=== PATIENT | male | born 1945 | race Caucasian/White ===

== ENCOUNTER 2022-04-15 14:01 | Observation (INO) ==
[2022-04-15] MEDS ORDERED: *HR* HYDROcodone/Acet 5/325 mg TABLET PO ONE (14:07)
[2022-04-15] MEDS ORDERED: Colchicine 0.6 MG TABLET PO ONE ×2 (14:07→20:00)
[2022-04-15 15:07] LABS: Basophils % 0.2 %; Eosinophils % 0.2 %; Hematocrit 34.9 % (37.5-50.1); Hemoglobin 11.4 g/dL (12.9-16.9); Immature Granulocytes % 0.4 % (0-4); Lymphocytes # 0.7 K/mcL (0.6-4.6); Lymphocytes % 4.4 %; Mean Corpuscular HGB Conc 32.7 g/dL (31.6-35.5); Mean Corpuscular Hemoglobin 28.6 pg (28.0-33.3); Mean Corpuscular Volume 87.5 fL (83.0-100.0); Mean Platelet Volume 9.5 fL (9.4-12.4); Monocytes % 12.3 %; Neutrophils # 13.6 K/mcL (1.6-8.9); Platelet Count 222 K/mcL (140-400); Red Blood Count 3.99 M/mcL (4.19-5.50); Red Cell Distribution Width 13.8 % (11.5-14.5); Segmented Neutrophils % 82.5 %; White Blood Count 16.5 K/mcL (4.3-11.1)
[2022-04-15 15:22] LABS: BUN/Creatinine Ratio 16 (6-26); Blood Urea Nitrogen 22 mg/dL (8-23); Calcium 8.5 mg/dL (8.6-10.3); Carbon Dioxide 27 mEq/L (23-29); Chloride 92 mEq/L (98-107); Glucose 238 mg/dL (70-105); Osmolality,Calculated 277 (280-300); Potassium 4.5 mEq/L (3.5-5.1); Sodium 128 mEq/L (136-145); Uric Acid 6.6 mg/dL (2.3-7.6)
[2022-04-15 15:26] LABS: Troponin I < 0.03 ng/mL (< 0.04)
[2022-04-15] MEDS ORDERED: 0.9 % Sodium Chloride 1,000 ML IVC SCH (15:45)
[2022-04-15] MEDS ORDERED: Naloxone 0.4 MG/ML INJ IVP PRN (17:32)
[2022-04-15] MEDS ORDERED: Acetaminophen 325 MG TABLET PO PRN (17:32)
[2022-04-15] MEDS ORDERED: D5% in Water 1,000 ML IVC PRN (17:41)
[2022-04-15] MEDS ORDERED: Dextrose Gel 15 GM/37.5 ML TUBE PO PRN ×2 (17:41)
[2022-04-15] MEDS ORDERED: *HR* Dextrose 50 % in Water (Syg) 50 ML SYRINGE IVP PRN (17:41)
[2022-04-15] MEDS ORDERED: Colchicine 0.6 MG TABLET PO STA (17:49)
[2022-04-15] MEDS: Furosemide 20 MG TABLET PO SCH (18:35)
[2022-04-15] MEDS ORDERED: Bacitracin/PolymyxinB OPTH Oin 3.5 APPL/3.5 GM TUBE RIGHT EYE SCH (21:00)
[2022-04-15] MEDS ORDERED: Erythromycin OPTH Oint BOTH EYES ONE (21:04)
[2022-04-15] MEDS: Insulin LISPRO 300 UNITS/3 ML VIAL SUBQ SCH (21:38)
[2022-04-16 07:32] LABS: Basophils % 0.3 %; Eosinophils # 0.4 K/mcL (0.0-0.6); Eosinophils % 3.1 %; Hematocrit 33.2 % (37.5-50.1); Hemoglobin 10.7 g/dL (12.9-16.9); Immature Granulocytes % 0.6 % (0-4); Lymphocytes # 1.3 K/mcL (0.6-4.6); Lymphocytes % 10.9 %; Mean Corpuscular HGB Conc 32.2 g/dL (31.6-35.5); Mean Corpuscular Hemoglobin 28.4 pg (28.0-33.3); Mean Corpuscular Volume 88.1 fL (83.0-100.0); Mean Platelet Volume 9.8 fL (9.4-12.4); Monocytes # 1.3 K/mcL (0.0-1.3); Neutrophils # 8.9 K/mcL (1.6-8.9); Platelet Count 245 K/mcL (140-400); Red Blood Count 3.77 M/mcL (4.19-5.50); Segmented Neutrophils % 74.1 %
[2022-04-16 08:18] LABS: Calcium 8.5 mg/dL (8.6-10.3); Potassium 4.2 mEq/L (3.5-5.1)
[2022-04-16] MEDS: Insulin LISPRO 300 UNITS/3 ML VIAL SUBQ SCH ×4 (11:01→19:37)
[2022-04-16] MEDS: amLODIPine 5 MG TABLET PO SCH (11:02)
[2022-04-16] MEDS: Metoprolol XL (24 HR) Succ 50 MG TAB.ER.24H PO SCH (11:02)
[2022-04-16] MEDS: Bacitracin/PolymyxinB OPTH Oin 3.5 APPL/3.5 GM TUBE BOTH EYES SCH ×2 (11:02→21:26)
[2022-04-16] MEDS: allopurinoL 100 MG TABLET PO SCH (11:02)
[2022-04-16] MEDS: Furosemide 20 MG TABLET PO SCH (11:02)
[2022-04-16] MEDS: Insulin DETEMIR 100 UNIT/ML X5UNITS SUBQ SCH (11:02)
[2022-04-16] MEDS: *HR* Glimepiride 4 MG TABLET PO SCH (11:02)
[2022-04-16] MEDS: Colchicine 0.6 MG TABLET PO SCH (11:04)
[2022-04-16] MEDS ORDERED: Sennosides/Docusate Sodium TABLET PO PRN (13:01)
[2022-04-16] MEDS: *HR* Heparin 5,000 UNIT/ML VIAL SQ SCH (21:21)
[2022-04-16] MEDS ORDERED: Ondansetron 4 MG/2 ML VIAL IVP PRN (21:36)
[2022-04-17] MEDS: *HR* Heparin 5,000 UNIT/ML VIAL SQ SCH ×3 (05:21→22:59)
[2022-04-17 06:26] LABS: Basophils % 0.3 %; Eosinophils # 0.4 K/mcL (0.0-0.6); Eosinophils % 3.6 %; Hematocrit 32.9 % (37.5-50.1); Hemoglobin 10.5 g/dL (12.9-16.9); Immature Granulocytes % 0.3 % (0-4); Lymphocytes # 1.9 K/mcL (0.6-4.6); Lymphocytes % 15.7 %; Mean Corpuscular HGB Conc 31.9 g/dL (31.6-35.5); Mean Corpuscular Volume 87.7 fL (83.0-100.0); Mean Platelet Volume 9.7 fL (9.4-12.4); Monocytes # 1.3 K/mcL (0.0-1.3); Monocytes % 11.1 %; Platelet Count 287 K/mcL (140-400); Red Blood Count 3.75 M/mcL (4.19-5.50); White Blood Count 11.8 K/mcL (4.3-11.1)
[2022-04-17 06:32] LABS: Neutrophils # 8.1 K/mcL (1.6-8.9)
[2022-04-17 06:48] LABS: Calcium 8.3 mg/dL (8.6-10.3); Potassium 4.3 mEq/L (3.5-5.1)
[2022-04-17] MEDS: amLODIPine 5 MG TABLET PO SCH (10:22)
[2022-04-17] MEDS: Metoprolol XL (24 HR) Succ 50 MG TAB.ER.24H PO SCH (10:22)
[2022-04-17] MEDS: *HR* Glimepiride 4 MG TABLET PO SCH (10:23)
[2022-04-17] MEDS: Insulin DETEMIR 100 UNIT/ML X5UNITS SUBQ SCH (10:24)
[2022-04-17] MEDS: Colchicine 0.6 MG TABLET PO SCH (10:24)
[2022-04-17] MEDS: allopurinoL 100 MG TABLET PO SCH (10:24)
[2022-04-17] MEDS: Bacitracin/PolymyxinB OPTH Oin 3.5 APPL/3.5 GM TUBE BOTH EYES SCH ×2 (10:29→22:58)
[2022-04-17] MEDS: Insulin LISPRO 300 UNITS/3 ML VIAL SUBQ SCH ×3 (10:29→16:37)
[2022-04-17] MEDS: Furosemide 20 MG TABLET PO SCH (16:13)
[2022-04-18] MEDS: *HR* Heparin 5,000 UNIT/ML VIAL SQ SCH ×3 (05:39→21:30)
[2022-04-18 07:59] LABS: Basophils # 0.1 K/mcL (0.0-0.2); Basophils % 0.6 %; Eosinophils # 0.7 K/mcL (0.0-0.6); Eosinophils % 8.4 %; Hematocrit 34.3 % (37.5-50.1); Hemoglobin 10.8 g/dL (12.9-16.9); Immature Granulocytes % 0.3 % (0-4); Lymphocytes # 1.3 K/mcL (0.6-4.6); Lymphocytes % 14.5 %; Mean Corpuscular HGB Conc 31.5 g/dL (31.6-35.5); Mean Corpuscular Hemoglobin 28.2 pg (28.0-33.3); Mean Corpuscular Volume 89.6 fL (83.0-100.0); Mean Platelet Volume 9.5 fL (9.4-12.4); Monocytes % 11.2 %; Neutrophils # 5.6 K/mcL (1.6-8.9); Platelet Count 333 K/mcL (140-400); Red Blood Count 3.83 M/mcL (4.19-5.50); Red Cell Distribution Width 13.9 % (11.5-14.5); White Blood Count 8.7 K/mcL (4.3-11.1)
[2022-04-18 08:16] LABS: Calcium 8.5 mg/dL (8.6-10.3); Potassium 4.7 mEq/L (3.5-5.1); Uric Acid 8.5 mg/dL (2.3-7.6)
[2022-04-18] MEDS: Metoprolol XL (24 HR) Succ 50 MG TAB.ER.24H PO SCH (09:41)
[2022-04-18] MEDS: Colchicine 0.6 MG TABLET PO SCH ×2 (09:41→21:30)
[2022-04-18] MEDS: amLODIPine 5 MG TABLET PO SCH (09:41)
[2022-04-18] MEDS: allopurinoL 100 MG TABLET PO SCH (09:42)
[2022-04-18] MEDS: Bacitracin/PolymyxinB OPTH Oin 3.5 APPL/3.5 GM TUBE BOTH EYES SCH (09:42)
[2022-04-18] MEDS ORDERED: predniSONE 20 MG TABLET PO SCH (11:15)
[2022-04-18] MEDS ORDERED: Insulin LISPRO 300 UNITS/3 ML VIAL SUBQ SCH (22:00)
[2022-04-19] MEDS: *HR* Heparin 5,000 UNIT/ML VIAL SQ SCH ×2 (06:55→15:02)
[2022-04-19] MEDS: Colchicine 0.6 MG TABLET PO SCH (09:02)
[2022-04-19] MEDS: Metoprolol XL (24 HR) Succ 50 MG TAB.ER.24H PO SCH (09:02)
[2022-04-19] MEDS: amLODIPine 5 MG TABLET PO SCH (09:02)
[2022-04-19] MEDS: allopurinoL 100 MG TABLET PO SCH (09:02)
[2022-04-19] MEDS: Insulin LISPRO 300 UNITS/3 ML VIAL SUBQ SCH ×3 (09:03→16:37)
[2022-04-19] MEDS: Bacitracin/PolymyxinB OPTH Oin 3.5 APPL/3.5 GM TUBE BOTH EYES SCH (13:08)
[2022-04-19 16:26] VITALS: BP 135/68; PULSE 70; RESP 16; TEMP 97.7; O2SAT 97
== END 2022-04-19 17:45 | disposition other institution (70) ==
LOC: INPPIK 14:01 → EMEROOPIK 14:01 → INPPIK 18:01
PROVIDERS: ADMIT Internal Medicine; ATTEND Internal Medicine

== ENCOUNTER 2022-04-19 13:09 | Inpatient (IN) ==
[2022-04-20] MEDS ORDERED: Insulin DETEMIR 100 UNIT/ML X5UNITS SUBQ SCH (09:00)
[2022-04-20] MEDS ORDERED: *HR* Glimepiride 4 MG TABLET PO SCH (09:00)
[2022-04-20] MEDS: Metoprolol XL (24 HR) Succ 50 MG TAB.ER.24H PO SCH (13:11)
[2022-04-20] MEDS: amLODIPine 5 MG TABLET PO SCH (13:11)
[2022-04-20] MEDS: allopurinoL 100 MG TABLET PO SCH (13:12)
[2022-04-20] MEDS: Colchicine 0.6 MG TABLET PO SCH ×2 (13:12→22:55)
[2022-04-20] MEDS ORDERED: *HR* Dextrose 50 % in Water (Syg) 50 ML SYRINGE IVP PRN (13:47)
[2022-04-20] MEDS ORDERED: Dextrose Gel 15 GM/37.5 ML TUBE PO PRN ×2 (13:47)
[2022-04-20] MEDS ORDERED: D5% in Water 1,000 ML IVC PRN (13:47)
[2022-04-20] MEDS: Insulin LISPRO 300 UNITS/3 ML VIAL SUBQ SCH ×2 (17:23→22:45)
[2022-04-20] MEDS: *HR* Heparin 5,000 UNIT/ML VIAL SQ SCH (22:56)
[2022-04-21] MEDS: *HR* Heparin 5,000 UNIT/ML VIAL SQ SCH ×3 (06:25→22:28)
[2022-04-21 07:38] LABS: Basophils # 0.1 K/mcL (0.0-0.2); Basophils % 0.7 %; Eosinophils # 0.6 K/mcL (0.0-0.6); Eosinophils % 7.5 %; Hematocrit 36.8 % (37.5-50.1); Hemoglobin 11.7 g/dL (12.9-16.9); Immature Granulocytes % 0.4 % (0-4); Lymphocytes # 1.7 K/mcL (0.6-4.6); Lymphocytes % 23.1 %; Mean Corpuscular HGB Conc 31.8 g/dL (31.6-35.5); Mean Corpuscular Hemoglobin 28.2 pg (28.0-33.3); Mean Corpuscular Volume 88.7 fL (83.0-100.0); Mean Platelet Volume 9.1 fL (9.4-12.4); Monocytes # 0.9 K/mcL (0.0-1.3); Monocytes % 12.5 %; Neutrophils # 4.2 K/mcL (1.6-8.9); Platelet Count 416 K/mcL (140-400); Red Blood Count 4.15 M/mcL (4.19-5.50); Red Cell Distribution Width 13.9 % (11.5-14.5); Segmented Neutrophils % 55.8 %; White Blood Count 7.5 K/mcL (4.3-11.1)
[2022-04-21 07:57] LABS: Calcium 8.8 mg/dL (8.6-10.3); Potassium 4.1 mEq/L (3.5-5.1); Uric Acid 6.3 mg/dL (2.3-7.6)
[2022-04-21] MEDS: Metoprolol XL (24 HR) Succ 50 MG TAB.ER.24H PO SCH (09:40)
[2022-04-21] MEDS: allopurinoL 100 MG TABLET PO SCH (09:41)
[2022-04-21] MEDS: Insulin DETEMIR 100 UNIT/ML X5UNITS SUBQ SCH (09:41)
[2022-04-21] MEDS: Colchicine 0.6 MG TABLET PO SCH ×2 (09:41→22:27)
[2022-04-21] MEDS: Insulin LISPRO 300 UNITS/3 ML VIAL SUBQ SCH ×4 (09:41→22:27)
[2022-04-21] MEDS: amLODIPine 5 MG TABLET PO SCH (09:41)
[2022-04-22] MEDS: *HR* Heparin 5,000 UNIT/ML VIAL SQ SCH ×3 (05:17→21:56)
[2022-04-22] MEDS: Metoprolol XL (24 HR) Succ 50 MG TAB.ER.24H PO SCH (08:57)
[2022-04-22] MEDS: Insulin LISPRO 300 UNITS/3 ML VIAL SUBQ SCH ×4 (08:58→21:56)
[2022-04-22] MEDS: Colchicine 0.6 MG TABLET PO SCH (08:58)
[2022-04-22] MEDS: allopurinoL 100 MG TABLET PO SCH (08:58)
[2022-04-22] MEDS: amLODIPine 5 MG TABLET PO SCH (08:58)
[2022-04-22] MEDS: Insulin DETEMIR 100 UNIT/ML X5UNITS SUBQ SCH (08:58)
[2022-04-23] MEDS: *HR* Heparin 5,000 UNIT/ML VIAL SQ SCH ×3 (05:29→20:15)
[2022-04-23] MEDS: amLODIPine 5 MG TABLET PO SCH (07:50)
[2022-04-23] MEDS: allopurinoL 100 MG TABLET PO SCH (07:50)
[2022-04-23] MEDS: Metoprolol XL (24 HR) Succ 50 MG TAB.ER.24H PO SCH (07:50)
[2022-04-23] MEDS: Insulin LISPRO 300 UNITS/3 ML VIAL SUBQ SCH ×4 (07:51→20:16)
[2022-04-23] MEDS: Insulin DETEMIR 100 UNIT/ML X5UNITS SUBQ SCH ×2 (09:51→20:15)
[2022-04-24] MEDS: *HR* Heparin 5,000 UNIT/ML VIAL SQ SCH ×3 (06:20→23:11)
[2022-04-24] MEDS: amLODIPine 5 MG TABLET PO SCH (09:42)
[2022-04-24] MEDS: Metoprolol XL (24 HR) Succ 50 MG TAB.ER.24H PO SCH (09:42)
[2022-04-24] MEDS: allopurinoL 100 MG TABLET PO SCH (09:42)
[2022-04-24] MEDS: Insulin DETEMIR 100 UNIT/ML X5UNITS SUBQ SCH ×2 (09:43→23:10)
[2022-04-24] MEDS: Insulin LISPRO 300 UNITS/3 ML VIAL SUBQ SCH ×4 (09:43→23:13)
[2022-04-25] MEDS: *HR* Heparin 5,000 UNIT/ML VIAL SQ SCH ×3 (06:49→20:00)
[2022-04-25] MEDS: Metoprolol XL (24 HR) Succ 50 MG TAB.ER.24H PO SCH (09:44)
[2022-04-25] MEDS: allopurinoL 100 MG TABLET PO SCH (09:44)
[2022-04-25] MEDS: amLODIPine 5 MG TABLET PO SCH (09:44)
[2022-04-25] MEDS: Furosemide 20 MG TABLET PO SCH (09:44)
[2022-04-25] MEDS: Insulin LISPRO 300 UNITS/3 ML VIAL SUBQ SCH ×4 (09:44→19:53)
[2022-04-25] MEDS: Insulin DETEMIR 100 UNIT/ML X5UNITS SUBQ SCH ×2 (10:48→19:53)
[2022-04-25 19:11] VITALS: RESP 17; O2SAT 92
[2022-04-26] MEDS: *HR* Heparin 5,000 UNIT/ML VIAL SQ SCH (06:32)
[2022-04-26 06:50] LABS: Hemoglobin 11.7 g/dL (12.9-16.9); Mean Corpuscular HGB Conc 31.6 g/dL (31.6-35.5); Mean Corpuscular Hemoglobin 27.9 pg (28.0-33.3); Mean Corpuscular Volume 88.3 fL (83.0-100.0); Platelet Count 289 K/mcL (140-400); Red Blood Count 4.19 M/mcL (4.19-5.50); Red Cell Distribution Width 14.6 % (11.5-14.5); White Blood Count 7.6 K/mcL (4.3-11.1)
[2022-04-26 07:13] LABS: Calcium 8.4 mg/dL (8.6-10.3); Potassium 3.8 mEq/L (3.5-5.1)
[2022-04-26 07:18] VITALS: TEMP 97.8
[2022-04-26 08:18] VITALS: BP 130/71; PULSE 85
[2022-04-26] MEDS: amLODIPine 5 MG TABLET PO SCH (08:18)
[2022-04-26] MEDS: Furosemide 20 MG TABLET PO SCH (08:19)
[2022-04-26] MEDS: allopurinoL 100 MG TABLET PO SCH (08:19)
[2022-04-26] MEDS: Insulin DETEMIR 100 UNIT/ML X5UNITS SUBQ SCH (08:19)
[2022-04-26] MEDS: Metoprolol XL (24 HR) Succ 50 MG TAB.ER.24H PO SCH (08:19)
[2022-04-26] MEDS: Insulin LISPRO 300 UNITS/3 ML VIAL SUBQ SCH ×2 (08:20→12:24)
== END 2022-04-26 14:35 | disposition home or self-care (01) | DRG 554 ==
LOC: INPPIK 20:09
PROVIDERS: ADMIT Internal Medicine; ATTEND Internal Medicine